=== PATIENT | male | born 1945 | race Caucasian/White ===

== ENCOUNTER 2017-09-03 12:20 | Outpatient (CLI) | payer MEDICARE ==
--- NOTE | 2017-09-03 14:56 | CT ---
CT ARTHROGRAM OF THE RIGHT SHOULDER 09/03/17 INDICATION: Rotator cuff injury. TECHNIQUE: Multiple CT images were obtained in the right shoulder following intra-articular administration of a dilute Isovue solution. Please see the separately dictated right shoulder arthrogram for details conc erning the injection technique. FINDINGS: There is a full thickness tear of the anterior and mid supraspinatus at the footprint measuring 2.9 x 2.7 cm. The posterior supraspinatus, infraspinatus, and teres minor are intact. The subscapularis is intact. The biceps tendon is located. There is abnormal linear contrast seen undermining the superio r glenoid labrum suspicious for a type II SLAP tear. There is some mild to moderate chondrosis involv ing the central and posterior aspect of the glenohumeral articulation. There is mild muscular atrophy of the supraspinatus. There is mild AC joint osteoarthrosis. The visualized right lung is clear. No enlarged lymph nodes are evident. There is partial visualization of a pacemaker overlying the left ch est wall. There is sternotomy wires that are partially visualized. IMPRESSION: 1. Full thickness tear of the supraspinatus. Mild supraspinatus muscular atrophy. 2. Type II SLAP tear. 3. Mild AC joint osteoarthrosis. 4. Mild to moderate chondrosis of the central and posterior central glenoid articular surface. POS: [facility]
--- NOTE | 2017-09-03 14:59 | RAD ---
RIGHT SHOULDER ARTHROGRAM 09/03/17 INDICATION: Right shoulder pain. TECHNIQUE: Informed consent was obtained. Preprocedure stat images were obtained of the right shoulder. Site ove rlying the right shoulder was marked. Site was prepped and draped in the usual sterile fashion. Buffe red 1% lidocaine was administered overlying subcutaneous tissues. Under fluoroscopic guidance, a 22 g auge spinal needle was guided down into the glenohumeral joint. Dilute Isovue solution was injected i nto the right glenohumeral joint. The patient tolerated the injection without difficulty. The site wa s then cleansed and bandaged. Patient was escorted to CT Suite for follow[facility] CT [facility] TOTAL FLUOROSCOPIC TIME: 0.4 minutes. Total exposure was 37.2 mGy*m2. FINDINGS: There is mild AC joint osteoarthrosis. No acute fracture or subluxation is evident. There is partial visualization of the pacemaker and sternotomy changes. IMPRESSION: Successful right shoulder arthrogram. POS: [facility]
== END 2017-09-03 12:21 | disposition home or self-care (01) ==
LOC: RAD 12:20
PROVIDERS: ATTEND Orthopaedic Surgery
DX: M75.101 Unspecified rotator cuff tear or rupture of right shoulder, not specified as traumatic (principal); S43.431A Superior glenoid labrum lesion of right shoulder, initial encounter; M19.011 Primary osteoarthritis, right shoulder
CPT/HCPCS: 23350

== ENCOUNTER 2017-10-22 14:23 | Outpatient (CLI) | payer MEDICARE ==
--- NOTE | 2017-10-22 15:20 | ULT ---
EXAM: SOFT TISSUE ULTRASOUND: HISTORY: Bruising along the right flank region. The patient feels a hard knot. COMPARISON: None. TECHNIQUE: Targeted sonographic imaging of the right lower quadrant and the right flank was performed. Static i mages are reviewed. After reviewing static images, the patient's flank was evaluated by the radiolog ist. Real-time imaging was also performed in the presence of radiologist. Static and real-time images demonstrate mixed echotexture in the right flank compatible with soft tis tammi edema. There is a solid and cystic component measuring 2.5 x 1.4 x 1.2 cm, without vascular flow . A resolving hematoma is favored. IMPRESSION: Resolving hematoma. Continued surveillance until complete resolution is recommended. POS: [facility]
== END 2017-10-22 14:24 | disposition home or self-care (01) ==
LOC: ULT 14:23
PROVIDERS: ATTEND Physician Assistant
DX: R19.03 Right lower quadrant abdominal swelling, mass and lump (principal); M79.81 Nontraumatic hematoma of soft tissue
CPT/HCPCS: 76705; 82728

== ENCOUNTER 2017-10-31 06:02 | Day surgery (SDC) | payer MEDICARE ==
[2017-10-30 14:01] VITALS: BMI 37.0
[2017-10-31] MEDS ORDERED: Lidocaine 1% PF 5 ML VIAL ONE ×2 (07:26→14:28)
[2017-10-31] MEDS ORDERED: Diprivan 20 ML ONE (07:26)
[2017-10-31] MEDS ORDERED: Propofol 200 MG/20 ML VIAL ONE (14:28)
== END 2017-10-31 09:58 | disposition home or self-care (01) ==
LOC: CCL 06:02
PROVIDERS: ATTEND Internal Medicine Cardiovascular Disease
DX: I48.91 Unspecified atrial fibrillation (principal)
CPT/HCPCS: 93005; 93010; 93312; J2001; J2704

== ENCOUNTER 2018-06-19 11:36 | Outpatient (CLI) | payer MEDICARE ==
[2018-06-19 12:48] LABS: Hemoglobin 11.5 g/dL (14.0-18.0); Mean Corpuscular HGB CONC 32.2 g/dL (32.0-36.0); Mean Corpuscular Hemoglobin 29.6 pg (27.0-31.0); Mean Corpuscular Volume 92.2 fL (78.0-98.0); Mean Platelet Volume 7.3 fL (7.4-10.4); Platelet Count 173 thou/uL (130-400); RBC Distribution Width 13.5 % (11.5-14.5); Red Blood Cell (RBC) Count 3.87 mill/uL (4.70-6.10); White Blood Cell (WBC) Count 5.2 thou/uL (4.8-10.8)
[2018-06-19 12:55] LABS: PTT 29.1 SEC (22.9-36.1); Prothrombin Time 13.4 SEC (12.0-14.7)
[2018-06-19 13:06] LABS: Anion Gap 15 mmol/L (10-20); BUN (Urea Nitrogen) 17 mg/dL (8.4-25.7); Calc. Creatinine Clearance 0 mL/min (70-130); Calcium 9.6 mg/dL (7.8-10.44); Carbon Dioxide 27 mmol/L (23-31); Chloride 97 mmol/L (98-107); Estimated GFR-MDRD 64; Glucose 238 mg/dL (83-110); Potassium 3.5 mmol/L (3.5-5.1); Sodium 135 mmol/L (136-145)
--- NOTE | 2018-06-21 17:53 | EKG ---
Test Reason : Blood Pressure : / mmHG Vent. Rate : 067 BPM Atrial Rate : 069 BPM P-R Int : 000 ms QRS Dur : 216 ms QT Int : 520 ms P-R-T Axes : 000 -84 100 degrees QTc Int : 549 ms Electronic ventricular pacemaker When compared with ECG of 31-OCT-2017 06:31, Vent. rate has decreased BY 8 BPM Confirmed by HERMELINDA BARBA (2) on 06/21/2018 5:52:57 PM Referred By: NIDIA Confirmed By:HERMELINDA BARBA
== END 2018-06-19 11:37 | disposition home or self-care (01) ==
LOC: LABBT 11:36
PROVIDERS: ATTEND Internal Medicine Cardiovascular Disease
DX: Z01.818 Encounter for other preprocedural examination (principal); Z51.81 Encounter for therapeutic drug level monitoring; I51.9 Heart disease, unspecified; I48.91 Unspecified atrial fibrillation; Z79.01 Long term (current) use of anticoagulants
CPT/HCPCS: 80048; 85027; 85610; 85730; 93005; 93010

== ENCOUNTER → 2018-06-23 | Day surgery (SDC) | payer MEDICARE ==
[2018-06-19 11:53] VITALS: BMI 34.2
[~2018-06-23] MED LIST: CEFAZOLIN/Water 2 GM/20 ML SYRINGE ONE; Fentanyl 100 MCG/2 ML VIAL ONE; Lidocaine 1% (PF) 30 ML VIAL ONE; Midazolam HCl 2 mg/2 ml Vial ONE; PROPOFOL 200 MG/20 ML VIAL ONE
--- NOTE | 2018-06-23 16:27 | RAD ---
CHEST ONE VIEW: Comparison: 06-05-17 History: Status post pacemaker placement. FINDINGS: Single view chest demonstrates a left sided transvenous pacemaker with leads positioned in the expect ed region of the right atrium, right ventricle, and possibly the coronary sinus. Evaluation is limite d due to poor penetration. Repeat imaging with better inspiration is recommended. No obvious pneumoth orax. IMPRESSION: 1. No obvious pneumothorax. 2. Left sided transvenous pacemaker as above. POS: [facility]
--- NOTE | 2018-06-24 01:35 | OP ---
DATE OF PROCEDURE: 06/23/2018 BIVENTRICULAR PACEMAKER UPGRADE REPORT REFERRING PHYSICIAN: Nas Heard M.D., and Hima Martinez M.D. REASON FOR PROCEDURE: Mr. Whitten is a 72-year-old man with history of single chamber pacemaker, paroxysmal atrial fibrillation with suboptimal suppression with amiodarone so far. He also has significant RV pacing and worsening LV systolic function, here for a biventricular pacemaker upgrade. Also, patient has history of Watchman left atrial appendage occlusion device placed in the past. PROCEDURE IN DETAIL: The patient received propofol by Anesthesia specialist. After adequate level of sedation achieved, the left subclavian venogram was performed from an antecubital port injection. The left precordial area was prepped, draped, anesthetized using subcutaneous lidocaine. After prepped and draped, anesthetizing the left subclavian site, a incision was made over the preexisting device with attention not to injure the prior lead. Following that , left subclavian venous access was performed using a micropuncture needle, which was used to cannulate the subclavian vein x2. Through a 6-Congolese tear- away sheath, a Medtronic 5076-52 cm, serial number [id number], pace sense lead was advanced to the right atrium and the sheath was removed. Also through a deflectable guide catheter, the CS was cannulated. CS venogram was performed using a 510 mL of contrast dye injected and a road map was obtained for the CS venous side branches. Following that, a lateral CS side branch was chosen. With the help of all hybrid wire, a Medtronic 4298-88 cm quadripolar CS lead serial number [id number] was advanced to the left lateral side branch. Pacing vectors were checked for diaphragmatic stimulation and adequate capture thresholds were obtained. The following numbers were obtained at the end of case; atrium 1.8., impedance 682 ohms, threshold not checked due to presence of atrial flutter, 340 milliseconds. Left ventricular 5.9, flow rate 1.9, impedance 408 ohms, threshold 2 volts at 0.5 milliseconds at LV2-LV3. The LV pacing with impedance 58 ohms, threshold 0.5 with 0.5 milliseconds in the vectors LV1-LV3. Heart rates were measured to be 10.9 millivolts through the device. in the atrium. Finally, the leads were sutured in place. All sheaths were removed. The Medtronic Percepta Quad SPARE PERSON-P device, model number W4TR01, serial number [id number]. MRI compatible pacemaker was attached to the leads. The pocket was expanded to accomodate the larger device and hemostasis obtained. A pocket irrigation was performed with bacitracin solution. The preexisting leads were attached to the device and was buried in the pacemaker pocket, sutured to the prepectoral fascia with Ethibond suture. Following that, a Vicryl suture was used to close the wound in 3 layers and also Dermabond was applied. Post images revealed no evidence of pneumothorax with lead placement. CONCLUSION: Successful upgrade of a prior single chamber pacemaker through 30- wire biventricular pacemaker. PLAN: Continue antibiotic for a week. Wound check in 2 weeks. [facility] followup. [facility]
--- NOTE | 2018-06-24 16:40 | EKG ---
Test Reason : Blood Pressure : / mmHG Vent. Rate : 070 BPM Atrial Rate : 300 BPM P-R Int : 000 ms QRS Dur : 186 ms QT Int : 478 ms P-R-T Axes : 000 251 042 degrees QTc Int : 516 ms Ventricular-paced rhythm Abnormal ECG When compared with ECG of 19-JUN-2018 12:29, Vent. rate has increased BY 3 BPM Confirmed by SUZAN SOTO, DR. Philip ([id number]) on 06/24/2018 4:39:44 PM Referred By: Confirmed By:DR. Cedrick MARES MD
== END ==
LOC: CCL 10:12
PROVIDERS: ATTEND Internal Medicine Cardiovascular Disease
PROC: 0JPT0PZ Removal of Cardiac Rhythm Related Device from Trunk Subcutaneous Tissue and Fascia, Open Approach (ICD-10-PCS; principal; 2018-06-23)
PROC: 0JH606Z Insertion of Pacemaker, Dual Chamber into Chest Subcutaneous Tissue and Fascia, Open Approach (ICD-10-PCS; 2018-06-23)
PROC: 02PA3MZ Removal of Cardiac Lead from Heart, Percutaneous Approach (ICD-10-PCS; 2018-06-23)
PROC: 02HL3JZ Insertion of Pacemaker Lead into Left Ventricle, Percutaneous Approach (ICD-10-PCS; 2018-06-23)
PROC: 02H63JZ Insertion of Pacemaker Lead into Right Atrium, Percutaneous Approach (ICD-10-PCS; 2018-06-23)
DX: I48.0 Paroxysmal atrial fibrillation (principal); I48.1 Persistent atrial fibrillation; I48.2 Chronic atrial fibrillation; I49.5 Sick sinus syndrome; I25.10 Atherosclerotic heart disease of native coronary artery without angina pectoris; E11.9 Type 2 diabetes mellitus without complications; E78.5 Hyperlipidemia, unspecified; Z79.02 Long term (current) use of antithrombotics/antiplatelets; Z79.4 Long term (current) use of insulin; Z79.82 Long term (current) use of aspirin; Z79.899 Other long term (current) drug therapy; Z95.1 Presence of aortocoronary bypass graft; Z95.818 Presence of other cardiac implants and grafts
CPT/HCPCS: 33224; 33225; 36005; 71045; 75820; 93005; C1882; C1898; C1900; 93010; J2001; J2250; J2704; J3010; J3490

== ENCOUNTER 2019-09-27 10:55 | Outpatient (CLI) | payer MEDICARE ==
--- NOTE | 2019-09-27 11:07 | RAD ---
EXAM: Chest 2 views: HISTORY: Bronchitis COMPARISON: 06/23/2018 FINDINGS: There is an enlarged cardiomediastinal silhouette. There is a pacemaker with its leads in the right atrium, right ventricle, and coronary sinus. There is no evidence of consolidation, mass, or pleural effusion. The bones are unremarkable. IMPRESSION: No evidence of acute cardiopulmonary disease
== END 2019-09-27 10:56 | disposition home or self-care (01) ==
LOC: BICRAD 10:55
PROVIDERS: ATTEND Family Medicine
DX: J40 Bronchitis, not specified as acute or chronic (principal)
CPT/HCPCS: 71046

== ENCOUNTER 2019-11-05 18:34 | Emergency (ER) | payer MEDICARE ==
[2019-11-05 19:14] LABS: #Basophils 0.1 thou/uL (0.0-0.2); #Eosinphils 0.2 thou/uL (0.0-0.7); #Lymphocytes 1.5 thou/uL (1.20-3.40); #Monocytes 0.7 thou/uL (0.11-0.59); %Basophils 0.7 % (0.0-1.0); %Eosinophils 3.2 % (0.0-10.0); %Monocytes 8.7 % (0.0-10.0); %Neutrophils 67.4 % (42.0-75.0); Hemoglobin 12.3 g/dL (14.0-18.0); Mean Corpuscular HGB CONC 33.6 g/dL (32.0-36.0); Mean Corpuscular Hemoglobin 30.9 pg (27.0-31.0); Mean Corpuscular Volume 91.7 fL (78.0-98.0); Mean Platelet Volume 7.2 fL (7.4-10.4); Platelet Count 217 thou/uL (130-400); Red Blood Cell (RBC) Count 3.99 mill/uL (4.70-6.10); White Blood Cell (WBC) Count 7.5 thou/uL (4.8-10.8)
[2019-11-05 19:21] LABS: Bacteria/HPF None Seen HPF (None Seen); Bilirubin Negative (Negative); Blood, Urine Negative (Negative); Clarity Clear (Clear); Glucose, Urine (Dipstick) Normal (Negative); Leukocyte 75 Leu/uL (Negative); Nitrite Negative (Negative); Protein, Urine (Dipstick) 10 mg/dL (Neg-Trace); RBC/HPF 0-3 HPF (0-3); Squamous Epithelial 0-3 HPF (0-3); Urobilinogen Normal mg/dL (Less than 2); WBC/HPF 0-3 HPF (0-3)
[2019-11-05 19:39] LABS: ALT (SGPT) 20 U/L (8-55); AST (SGOT) 18 U/L (5-34); Albumin 4.3 g/dL (3.4-4.8); Alkaline Phosphatase 61 U/L (40-110); Anion Gap 13 mmol/L (10-20); BUN (Urea Nitrogen) 21 mg/dL (8.4-25.7); Bilirubin, Total 0.4 mg/dL (0.2-1.2); Calc. Creatinine Clearance 0 mL/min (70-130); Calcium 9.8 mg/dL (7.8-10.44); Carbon Dioxide 28 mmol/L (23-31); Chloride 101 mmol/L (98-107); Estimated GFR-MDRD 58; Glucose 145 mg/dL (83-110); Potassium 3.7 mmol/L (3.5-5.1); Protein, Total 7.3 g/dL (5.8-8.1); Sodium 138 mmol/L (136-145)
== END 2019-11-05 22:23 | disposition home or self-care (01) ==
LOC: ERS 18:34
DX: R53.1 Weakness (principal); I11.0 Hypertensive heart disease with heart failure; I50.9 Heart failure, unspecified; I48.91 Unspecified atrial fibrillation; I25.2 Old myocardial infarction; E11.9 Type 2 diabetes mellitus without complications; E78.5 Hyperlipidemia, unspecified; E78.00 Pure hypercholesterolemia, unspecified; F32.9 Major depressive disorder, single episode, unspecified; Z79.84 Long term (current) use of oral hypoglycemic drugs; Z79.899 Other long term (current) drug therapy
CPT/HCPCS: 36415; 80053; 81003; 81015; 84484; 85025; 86850; 86900; 86901; 93005; 96360

== ENCOUNTER 2020-12-15 10:47 | Outpatient (CLI) | payer MEDICARE ==
[2020-12-15] MEDS ORDERED: Magnevist 469MG/ML 20 ML VIAL ONE (12:34)
== END 2020-12-15 10:48 | disposition home or self-care (01) ==
LOC: MRI 10:47
PROVIDERS: ATTEND Psychiatry & Neurology Neurology
DX: G50.0 Trigeminal neuralgia (principal); I67.82 Cerebral ischemia
CPT/HCPCS: 70553; 82565; A9579

== ENCOUNTER 2023-01-07 08:24 | Outpatient (CLI) | payer MEDICARE ==
[2023-01-07] MEDS ORDERED: Iopamidol 370 76% 100 ML VIAL ONE (09:43)
== END 2023-01-07 08:25 | disposition home or self-care (01) ==
LOC: CT 08:24
PROVIDERS: ATTEND Family Medicine
DX: E78.5 Hyperlipidemia, unspecified (principal); R10.31 Right lower quadrant pain; N28.1 Cyst of kidney, acquired; N20.0 Calculus of kidney
CPT/HCPCS: 74170; 82565